=== PATIENT | female | born 1970 | race Caucasian/White ===

== ENCOUNTER → 2017-01-25 | Outpatient (CLI) | payer OTHER ==
[~2017-01-25] MED LIST: E-Z-GAS II EFFERVESCENT PACKET (SODIUM BICARB./CITRIC ACID/SIMETHICONE) As Ordered ONE; E-Z-HD 98% w/w 340GM SUSP BTL As Ordered ONE; E-Z-PAQUE 96% w/w SUSP 176GM BTL As Ordered ONE
--- NOTE | 2017-01-25 16:21 | REP ---
UPPER GI: The procedure was performed by BRIAN Miller under the direct supervision of Dr. Hansen. All imaging was reviewed with Dr Hansen prior to dictation. The patient was able to ingest liquid barium and air in a quantity sufficient to produce a double contrast examination. The oral and pharyngeal stages or deglutition appear unremarkable. Esophageal transport was prompt and efficient. There was no evidence of esophagitis, stricture, mucosa ring, or hiatal hernia. Gastroesophageal reflux was not observed on this exam. The stomach walsh were normally outlined. The rugal folds were smooth and regular. There was no gastritis, neoplasm or ulcerative disease. The duodenal walsh are normally outlined. There is no evidence of duodenitis, pancreatitis, peptic ulcer disease or neoplasm. The visualized portion of the proximal small bowel was normal in course and caliber. IMPRESSION: Unremarkable double contrast upper GI examination. Fluoroscopy time of 3 minutes and 44 seconds. Reviewed by BRIAN Snell 01/25/2017 04:30 PEdited and Signed by Kd Hansen MD 01/25/2017 05:04 P
== END ==
LOC: M RAD 09:52
PROVIDERS: ATTEND Nurse Practitioner Family
DX: R13.14 Dysphagia, pharyngoesophageal phase (principal)

== ENCOUNTER → 2017-07-10 | Outpatient (REF) | payer OTHER ==
[2017-07-10 12:20] LABS: HEMATOCRIT 44.2 % (36.0-47.0); HEMOGLOBIN 14.4 g/dl (12.0-16.0); MEAN CORPUSCULAR HEMOGLOBIN 30.7 pg (27.0-33.0); MEAN CORPUSCULAR HGB CONC 32.6 g/dl (32.0-36.5); MEAN CORPUSCULAR VOLUME 94.2 fl (80.0-96.0); PLATELET COUNT, AUTOMATED 368 10^3/uL (150-450); RED BLOOD COUNT 4.69 10^6/uL (4.00-5.40); WHITE BLOOD COUNT 10.8 10^3/uL (4.0-10.0)
[2017-07-10 13:04] LABS: ALBUMIN 3.3 GM/DL (3.2-5.2); ALBUMIN/GLOBULIN RATIO 0.94 (1.00-1.93); ALKALINE PHOSPHATASE 70 U/L (45-117); ALT/SGPT 18 U/L (12-78); ANION GAP 7 MEQ/L (8-16); AST/SGOT 14 U/L (7-37); BILIRUBIN,TOTAL 0.3 MG/DL (0.2-1.0); BLOOD UREA NITROGEN 9 MG/DL (7-18); CARBON DIOXIDE LEVEL 28 MEQ/L (21-32); CHLORIDE LEVEL 107 MEQ/L (98-107); CHOLESTEROL LEVEL 174 MG/DL (<200); CHOLESTEROL RISK RATIO 4.833 (<5); CREATININE FOR GFR 0.74 MG/DL (0.55-1.30); GLOMERULAR FILTRATION RATE > 60.0 (>58); GLUCOSE, FASTING 86 MG/DL (70-100); HDL CHOLESTEROL 36 MG/DL (>40); NON-HDL-C 138 MG/DL; POTASSIUM SERUM 4.6 MEQ/L (3.5-5.1); SODIUM LEVEL 142 MEQ/L (136-145); THYROID STIMULATING HORMONE 0.953 uIU/ML (0.358-3.740); TOTAL PROTEIN 6.8 GM/DL (6.4-8.2); TRIGLYCERIDES LEVEL 155 MG/DL (<150)
== END ==
LOC: M SFHCPLAZ 09:01
DX: Z00.00 Encounter for general adult medical examination without abnormal findings (principal)
CPT/HCPCS: 84443

== ENCOUNTER → 2017-07-13 | Outpatient (CLI) | payer OTHER ==
[~2017-07-13] MED LIST changes: -E-Z-GAS II EFFERVESCENT PACKET (SODIUM BICARB./CITRIC ACID/SIMETHICONE) As Ordered ONE; -E-Z-HD 98% w/w 340GM SUSP BTL As Ordered ONE; -E-Z-PAQUE 96% w/w SUSP 176GM BTL As Ordered ONE; +ISOVUE-370 76% 100ML VIAL (Q9967) As Ordered
== END ==
LOC: M RAD 16:19
DX: R13.14 Dysphagia, pharyngoesophageal phase (principal)
CPT/HCPCS: Q9967

== ENCOUNTER → 2018-06-15 | Outpatient (CLI) | payer OTHER ==
--- NOTE | 2018-06-15 16:57 | REPMRS ---
Patient History The patient states she has not had a clinical breast exam in over a year. Family history of prostate cancer at age 50 or over in father, breast cancer at age 57 in maternal aunt. No Hormone Replacement Therapy Digital Woman Screen Mammo: June 15, 2018 - Exam #: [id number] Bilateral CC and MLO view(s) were taken. Technologist: Steffi Torres, Technologist Prior study comparison: July 17, 2013, digital woman screen mammo performed at [facility]. FINDINGS: There are scattered fibroglandular densities. There has been no change in the appearance of the mammogram from the prior studies. There is a mild amount of scattered fibroglandular density which is fairly symmetric. There is no interval development of dominant mass, architectural distortion, or clustered microcalcification suggestive of malignancy. 3-D tomosynthesis shows no additional findings. Assessment: BI-RADS/ACR category 1 mammogram. Negative. Recommendation Routine screening mammogram of both breasts in 1 year (for women over age 40). This patient's Lifetime Breast Cancer RIsk is estimated at 10.9 %. This mammogram was interpreted with the aid of an FDA-approved computer-aided dectection system. Electronically Signed By: Adam Joshi MD 06/15/18 [id number]
== END ==
LOC: M WHC 14:31
PROVIDERS: ATTEND Nurse Practitioner Adult Health
DX: Z12.31 Encounter for screening mammogram for malignant neoplasm of breast (principal)

== ENCOUNTER → 2020-06-02 | Outpatient (CLI) | payer OTHER ==
--- NOTE | 2020-06-02 08:40 | REPPI ---
INDICATION: RIGHT HIP PAIN COMPARISON: None. TECHNIQUE: AP and frog-lateral views of the right hip FINDINGS: Generalized age-related changes include subtle increased sclerosis to the acetabulum and enthesopathy along the greater trochanter. No further overt osteoarthritic or significant degenerative changes are appreciated. No evidence for acute or healed injury. Surrounding soft tissues are normal. IMPRESSION: Mild generalized age-related degenerative changes. <Electronically signed by David Adam > 06/02/20 0806
== END ==
LOC: M PLAIMG 08:21
PROVIDERS: ATTEND Nurse Practitioner Adult Health
DX: M25.551 Pain in right hip (principal)

== ENCOUNTER → 2020-06-02 | Outpatient (REF) | payer OTHER ==
[2020-06-02 11:13] LABS: HEMATOCRIT 47.8 % (36.0-47.0); HEMOGLOBIN 14.8 g/dl (12.0-15.5); MEAN CORPUSCULAR HEMOGLOBIN 29.6 pg (27.0-33.0); MEAN CORPUSCULAR VOLUME 95.6 fl (80.0-96.0); PLATELET COUNT, AUTOMATED 455 10^3/uL (150-450); WHITE BLOOD COUNT 13.5 10^3/uL (4.0-10.0)
[2020-06-02 11:39] LABS: ALT/SGPT 26 U/L (12-78); BLOOD UREA NITROGEN 9 MG/DL (7-18); CALCIUM LEVEL 9.3 MG/DL (8.5-10.1); CARBON DIOXIDE LEVEL 30 MEQ/L (21-32); CHLORIDE LEVEL 106 MEQ/L (98-107); CREATININE FOR GFR 0.76 MG/DL (0.55-1.30); GLOMERULAR FILTRATION RATE > 60.0 (>58); GLUCOSE, FASTING 92 MG/DL (70-100); POTASSIUM SERUM 5.1 MEQ/L (3.5-5.1); SODIUM LEVEL 142 MEQ/L (136-145)
[2020-06-02 11:40] LABS: ALBUMIN 3.5 GM/DL (3.2-5.2); BILIRUBIN,TOTAL 0.2 MG/DL (0.2-1.0); TOTAL PROTEIN 7.2 GM/DL (6.4-8.2)
[2020-06-02 11:47] LABS: TOTAL 25(OH) VITAMIN D 18.1 NG/ML (30.0-100.0)
== END ==
LOC: M SFHCPLAZ 08:21
PROVIDERS: ATTEND Nurse Practitioner Adult Health
DX: E55.9 Vitamin D deficiency, unspecified (principal)

== ENCOUNTER → 2020-07-15 | Outpatient (CLI) | payer OTHER ==
[~2020-07-15] MED LIST changes: -ISOVUE-370 76% 100ML VIAL (Q9967) As Ordered; +ISOVUE-370 76% 100ML VIAL As Ordered ONE
--- NOTE | 2020-07-15 14:10 | REP ---
INDICATION: SARCOIDOSIS COMPARISON: 07/13/2017 TECHNIQUE: Axial contrast enhanced images from the thoracic inlet to the upper abdomen with coronal and sagittal reformations using 75 ml Isovue 370 intravenous contrast material. This CT examination was performed using the following dose reduction techniques: Automated exposure control, adjustment of mA and/or kv according to the patient's size, and use of iterative reconstruction technique. FINDINGS: Lung morton are well aerated, symmetric, and demonstrate scattered calcified and noncalcified nodules measuring up to roughly 6 mm and essentially unchanged compared to prior examination. No acute consolidation, new significant nodule or mass lesion. No pleural effusion. No pneumothorax. Partially calcified hilar and mediastinal lymph nodes again identified without significant adenopathy. Further evaluation of the mediastinum demonstrates normal/stable thoracic aorta, pulmonary vasculature, and heart/pericardium. Musculoskeletal structures are intact. Limited upper abdomen demonstrates diffuse hepatosteatosis and normal bilateral adrenal glands. IMPRESSION: Stable scattered calcified and noncalcified nodules along with partially calcified normal size mediastinal and hilar lymph nodes consistent with sarcoidosis and or granulomatous disease. No acute mediastinal or pleuroparenchymal process. Hepatosteatosis. <Electronically signed by David Adam > 07/15/20 [id number]
== END ==
LOC: M RAD 09:58
PROVIDERS: ATTEND Nurse Practitioner Adult Health
DX: D86.9 Sarcoidosis, unspecified (principal)
CPT/HCPCS: 71260; Q9967

== ENCOUNTER → 2020-08-06 | Outpatient (CLI) | payer OTHER ==
--- NOTE | 2020-08-06 13:10 | REPVR ---
PROCEDURE INFORMATION: Exam: MR Lumbar Spine Without Contrast Exam date and time: 08/06/2020 8:46 AM Age: 49 years old Clinical indication: Low back pain; Additional info: Lbp TECHNIQUE: Imaging protocol: Multiplanar magnetic resonance images of the lumbar spine without intravenous contrast. COMPARISON: MRI-Spine, L.S. without con 02/19/2016 5:53 PM FINDINGS: Vertebrae: Mild exaggeration of the lumbar lordosis. 4 mm of degenerative retrolisthesis of L5 on S1, 3 mm of degenerative retrolisthesis of L3 on L4. No acute fracture seen. Spinal cord: The conus medullaris ends normally. Disc desiccation throughout. Mild disc height loss at L1-L2. There is [id number] prevertebral spondylosis from L1-L2 through L3-L4. Small lower thoracic and upper lumbar endplate Schmorl's nodes. L1-L2: No significant interval change. Mild disc bulge and right facet arthropathy. No stenoses. L2-L3: Mild right eccentric disc bulge. Decreased conspicuity of broad-based right paracentral disc protrusion with high-intensity zone since prior. Facet arthropathy is mild. No stenoses. L3-L4: Mild progression of right eccentric disc osteophyte complex as well as mild to moderate facet arthropathy. High-intensity zone in right foraminal disc margin. The central spinal canal remains patent. Mild right neural foraminal stenosis. No significant left neural foraminal narrowing. L4-L5: Mildly progressive left eccentric disc osteophyte complex. New high-intensity zone in left lateral canal/foraminal disc margin. Moderate facet arthropathy with facet joint effusions again demonstrated. Mild left neural foraminal stenosis is similar to prior. There is a new 9 x 9 mm right foraminal cystic lesion, image 10 series 601, most likely a synovial cyst which impinges upon the exiting right L4 nerve root. L5-S1: No significant interval change. Moderate facet arthropathy. Left paracentral disc protrusion with high-intensity zone is again demonstrated. The central spinal canal remains patent. No evidence of S1 nerve root impingement. No significant foraminal stenoses. Soft tissues: Nonspecific edema in the back subcutaneous fat, potentially dependent/positional. Kidneys and ureters: The left kidney is atrophic. There is compensatory hypertrophy of the right kidney. IMPRESSION: 1. A new cystic lesion in the right L4-L5 foramen, most likely a synovial cyst which impinges upon the exiting right L4 nerve root. 2. Mild progression of degenerative disc disease at L3-L4 and L4-L5. Electronically signed by: Steffi Velázquez On 08/06/2020 13:11:20 PM
== END ==
LOC: M RAD 08:44
PROVIDERS: ATTEND Nurse Practitioner Adult Health
DX: M51.36 Other intervertebral disc degeneration, lumbar region (principal)

== ENCOUNTER → 2020-11-05 | Outpatient (CLI) | payer OTHER ==
--- NOTE | 2020-11-05 08:19 | REP ---
INDICATION: EPIGASTRIC PAIN COMPARISON: None. TECHNIQUE: Real time schwartz scale ultrasound examination using curved array transducer. FINDINGS: Liver is enlarged measuring 21 cm in craniocaudal length and demonstrates increased echotexture suggesting fatty infiltration with areas of focal fatty sparing. No focal hepatic lesion identified. Pancreas is incompletely evaluated due to interposed bowel gas but visualized portions appear normal. Gallbladder is normal and without gallstones, wall thickening, or pericholecystic fluid. No biliary ductal dilatation is appreciated and the common bile duct measures 5.1 mm diameter. The right kidney is normal in reniform shape without hydronephrosis and measures 13.2 x 6.0 x 5.1 cm. No ascites in the visualized right upper quadrant. IMPRESSION: Hepatomegaly and hepatosteatosis. <Electronically signed by David Adam > 11/05/20 [id number]
== END ==
LOC: M RAD 07:20
PROVIDERS: ATTEND Nurse Practitioner Adult Health
DX: R10.13 Epigastric pain (principal)

== ENCOUNTER → 2020-12-01 | Outpatient (REF) | payer OTHER ==
[2020-12-01 10:01] LABS: HEMATOCRIT 46.3 % (36.0-47.0); MEAN CORPUSCULAR HEMOGLOBIN 30.5 pg (27.0-33.0); MEAN CORPUSCULAR HGB CONC 32.4 g/dl (32.0-36.5); MEAN CORPUSCULAR VOLUME 94.1 fl (80.0-96.0); PLATELET COUNT, AUTOMATED 380 10^3/uL (150-450); RED BLOOD COUNT 4.92 10^6/uL (4.00-5.40); WHITE BLOOD COUNT 9.4 10^3/uL (4.0-10.0)
[2020-12-01 10:29] LABS: ALBUMIN 3.6 GM/DL (3.2-5.2); ALT/SGPT 38 U/L (12-78); BILIRUBIN,TOTAL 0.3 MG/DL (0.2-1.0); BLOOD UREA NITROGEN 15 MG/DL (7-18); CALCIUM LEVEL 9.5 MG/DL (8.5-10.1); CARBON DIOXIDE LEVEL 29 MEQ/L (21-32); CHLORIDE LEVEL 108 MEQ/L (98-107); CREATININE FOR GFR 0.71 MG/DL (0.55-1.30); GLOMERULAR FILTRATION RATE > 60.0 (>58); GLUCOSE, FASTING 84 MG/DL (70-100); MAGNESIUM LEVEL 1.9 MG/DL (1.8-2.4); POTASSIUM SERUM 4.9 MEQ/L (3.5-5.1); SODIUM LEVEL 141 MEQ/L (136-145)
== END ==
LOC: M SFHCPLAZ 08:52
PROVIDERS: ATTEND Nurse Practitioner Adult Health
DX: R00.2 Palpitations (principal)

== ENCOUNTER → 2020-12-05 | Outpatient (CLI) | payer OTHER ==
--- NOTE | 2020-12-07 18:58 | HOLTMON ---
[facility] Test Date: 2020-12-05 Pat Name: ITZEL MURRIETA Department: Room: - Gender: Female Information Technology Director: FERNIEELLIOT LOVEJALYN : 1970 Requested By: Steffany LAWS Order Number: [id number] Reading MD: Taran Mack Interpretive Statements monitored for 24 hours, underlying rhythm sinus with rates varying from 57-166, averaging 84 bpm. there was no significant bradyarrhythmia or AV block. No atrial ectopic activity. Average of 37 isolated PVCs per hour but no ventricular tachycardiac. the patient noted 1 diary entry "felt palpitations, nausea and dyspnea" rhythm at this time did not show any change from baseline; normal sinus rhythm rates 67 with isolated PVC. Findings well within normal limits. Electronically Signed on 12-07-2020 18:58:29 EDT by Taran Mack
== END ==
LOC: M EKG 08:18
PROVIDERS: ATTEND Nurse Practitioner Adult Health
DX: R00.2 Palpitations (principal)

== ENCOUNTER → 2021-06-24 | Outpatient (CLI) | payer OTHER ==
[2021-06-24 09:48] LABS: DRVV SCREEN 38.4 SEC
[2021-06-24 09:54] LABS: ALBUMIN 3.3 GM/DL (3.2-5.2); ALT/SGPT 22 U/L (12-78); BILIRUBIN,TOTAL 0.2 MG/DL (0.2-1.0); BLOOD UREA NITROGEN 11 MG/DL (7-18); C REACTIVE PROTEIN QUANTITATIV 0.88 MG/DL (0.00-0.30); CALCIUM LEVEL 9.4 MG/DL (8.5-10.1); CARBON DIOXIDE LEVEL 30 MEQ/L (21-32); CHLORIDE LEVEL 108 MEQ/L (98-107); CREATININE FOR GFR 0.73 MG/DL (0.55-1.30); GLOMERULAR FILTRATION RATE > 60.0 (>58); GLUCOSE, FASTING 96 MG/DL (70-100); POTASSIUM SERUM 4.4 MEQ/L (3.5-5.1); RHEUMATOID FACTOR QUANT < 10.0 IU/ML (<15.0); SODIUM LEVEL 141 MEQ/L (136-145)
== END ==
LOC: M LAB 08:38
PROVIDERS: ATTEND Nurse Practitioner Adult Health
DX: J45.909 Unspecified asthma, uncomplicated (principal)

== ENCOUNTER 2021-09-02 14:36 | Emergency (ER) | payer OTHER ==
[~2021-09-02] VITALS: Ht 162.6 cm; Wt 98.5 kg
[2021-09-02] MEDS ORDERED: NS 1,000 ML IV ONE (16:00)
[2021-09-02] MEDS ORDERED: ONDANSETRON 4MG/2ML VIAL IV ONE (16:00)
[2021-09-02] MEDS ORDERED: KETOROLAC 30 MG/ML 1ML VIAL IV ONE (16:00)
[2021-09-02 16:36] LABS: BASO % 0.3 % (0.0-1.0); EOS # 0.3 10^3/uL (0.0-0.5); EOS % 1.9 % (0.0-3.0); HEMOGLOBIN 14.2 g/dl (12.0-15.5); LYMPH # 3.6 10^3/uL (1.5-5.0); LYMPH % 26.3 % (24.0-44.0); MEAN CORPUSCULAR HEMOGLOBIN 30.1 pg (27.0-33.0); MEAN CORPUSCULAR VOLUME 91.3 fl (80.0-96.0); MONO # 0.9 10^3/uL (0.0-0.8); MONO % 6.8 % (2.0-8.0); NEUTROPHILS # 8.9 10^3/uL (1.5-8.5); NEUTROPHILS % 64.2 % (36.0-66.0); PLATELET COUNT, AUTOMATED 398 10^3/uL (150-450); RED BLOOD COUNT 4.71 10^6/uL (4.00-5.40); WHITE BLOOD COUNT 13.8 10^3/uL (4.0-10.0)
[2021-09-02] MEDS ORDERED: TRAM50TA2 PO (16:43)
[2021-09-02 17:04] LABS: ALBUMIN 3.4 GM/DL (3.2-5.2); ALT/SGPT 38 U/L (12-78); BILIRUBIN,DIRECT < 0.1 MG/DL (0.0-0.2); BILIRUBIN,TOTAL 0.2 MG/DL (0.2-1.0); LIPASE 206 U/L (73-393); TOTAL PROTEIN 6.7 GM/DL (6.4-8.2)
[2021-09-02 17:06] VITALS: BP 121/66
[2021-09-02] MEDS ORDERED: CIPR-249 PO (17:28)
[2021-09-02] MEDS ORDERED: FLOM0.4C39 PO (17:28)
== END 2021-09-02 17:43 | disposition home or self-care (01) ==
LOC: M ED 14:36
DX: N13.2 Hydronephrosis with renal and ureteral calculous obstruction (principal); K52.9 Noninfective gastroenteritis and colitis, unspecified; N39.0 Urinary tract infection, site not specified; R59.9 Enlarged lymph nodes, unspecified; R00.2 Palpitations; J45.909 Unspecified asthma, uncomplicated; D86.9 Sarcoidosis, unspecified; F17.200 Nicotine dependence, unspecified, uncomplicated
CPT/HCPCS: 74176; 80047; 80076; 81001; 82550; 83605; 83690; 85025; 87086; 93005; 96361; 96374; 96375; 99284; J1885; J2405

== ENCOUNTER → 2021-09-15 | Outpatient (REF) | payer OTHER ==
[~2021-09-15] MED LIST changes: +CIPR-249 PO; +FLOM0.4C39 PO; -ISOVUE-370 76% 100ML VIAL As Ordered ONE; +TRAM50TA2 PO
[2021-09-15 17:47] LABS: APPEARANCE, URINE HAZY (CLEAR); BACTERIA, URINE AUTO NEGATIVE (NEGATIVE); BILIRUBIN, URINE AUTO NEGATIVE (NEGATIVE); BLOOD, URINE BLOOD 2+ (NEGATIVE); COLOR, URINE YELLOW (YELLOW); GLUCOSE, URINE (UA) AUTO NEGATIVE (NEGATIVE); KETONE, URINE AUTO TRACE mg/dL (NEGATIVE); LEUKOCYTE ESTERASE, URINE AUTO NEGATIVE (NEGATIVE); NITRITE, URINE AUTO NEGATIVE (NEGATIVE); PROTEIN, URINE AUTO NEGATIVE (NEGATIVE); RBC, URINE AUTO 80 /HPF (0-3); SQUAMOUS EPITHELIAL CELL UR AU 2 /HPF (0-6); WBC, URINE AUTO 2 /HPF (0-3)
== END ==
LOC: M SMT 17:18
PROVIDERS: ATTEND Nurse Practitioner Women's Health
DX: N13.2 Hydronephrosis with renal and ureteral calculous obstruction (principal)

== ENCOUNTER → 2021-09-16 | Outpatient (CLI) | payer OTHER | LOC: M RAD 07:39 | PROVIDERS: ATTEND Nurse Practitioner Women's Health | DX: N13.2 Hydronephrosis with renal and ureteral calculous obstruction (principal) ==

== ENCOUNTER → 2022-08-01 | Outpatient (CLI) | payer OTHER ==
[~2022-08-01] MED LIST changes: +BUDE3CAP PO; +BUSP10TA; +BUSP10TA PO; +FISH1000 PO; +OMEP40CA5; +RA T500C2 PO; +VITMTA PO; +collagen
[2022-08-01 08:47] LABS: FREE T4 0.99 NG/DL (0.89-1.76); IMMUNOGLOBULIN A 172.2 MG/DL (40-350)
[2022-08-01 08:48] LABS: THYROID STIMULATING HORMONE 1.717 uIU/ML (0.55-4.78)
== END ==
LOC: M LAB 07:55
PROVIDERS: ATTEND Internal Medicine Gastroenterology
DX: R19.7 Diarrhea, unspecified (principal)

== ENCOUNTER → 2022-08-03 | Outpatient (REF) | payer OTHER | LOC: M LAB REF 09:26 | PROVIDERS: ATTEND Internal Medicine Gastroenterology | DX: R19.7 Diarrhea, unspecified (principal) ==

== ENCOUNTER → 2022-08-12 | Outpatient (CLI) | payer OTHER ==
[~2022-08-12] MED LIST changes: +E-Z-GAS II EFFERVESCENT PACKET (SODIUM BICARB./CITRIC ACID/SIMETHICONE) As Ordered ONE; +E-Z-HD 98% w/w 340GM SUSP BTL As Ordered ONE; +E-Z-PAQUE 96% w/w SUSP 176GM BTL As Ordered ONE
== END ==
LOC: M RAD 08:01
PROVIDERS: ATTEND Internal Medicine Gastroenterology
DX: R93.9 Diagnostic imaging inconclusive due to excess body fat of patient (principal); R13.10 Dysphagia, unspecified

== ENCOUNTER 2023-03-14 15:17 | Inpatient (IN) | payer OTHER ==
[~2023-03-14] VITALS: Ht 157.5 cm; Wt 90.5 kg
[~2023-03-14 15:17] MED LIST changes: -E-Z-GAS II EFFERVESCENT PACKET (SODIUM BICARB./CITRIC ACID/SIMETHICONE) As Ordered ONE; -E-Z-HD 98% w/w 340GM SUSP BTL As Ordered ONE; -E-Z-PAQUE 96% w/w SUSP 176GM BTL As Ordered ONE
[2023-03-14] MEDS ORDERED: ONDANSETRON 4MG 2ML VIAL As Ordered ONE (15:31)
[2023-03-14] MEDS ORDERED: MORPHINE 4 MG/ML 1ML VIAL IV PRN ×3 (16:10→20:00)
[2023-03-14] MEDS ORDERED: METOCLOPRAMIDE INJ 10MG/2ML VIAL IV ONE (16:10)
[2023-03-14] MEDS: NS 1,000 ML IV SCH ×2 (16:28→21:02)
[2023-03-14 16:31] LABS: BASO # 0.1 10^3/uL (0.0-0.2); BASO % 0.3 % (0.0-1.0); EOS # 0.1 10^3/uL (0.0-0.5); EOS % 0.6 % (0.0-3.0); HEMATOCRIT 51.5 % (36.0-47.0); HEMOGLOBIN 17.3 g/dl (12.0-15.5); LYMPH # 1.8 10^3/uL (1.5-5.0); LYMPH % 8.9 % (24.0-44.0); MEAN CORPUSCULAR HEMOGLOBIN 30.1 pg (27.0-33.0); MEAN CORPUSCULAR HGB CONC 33.6 g/dl (32.0-36.5); MEAN CORPUSCULAR VOLUME 89.7 fl (80.0-96.0); MONO # 0.7 10^3/uL (0.0-0.8); MONO % 3.6 % (2.0-8.0); NEUTROPHILS # 17.4 10^3/uL (1.5-8.5); PLATELET COUNT, AUTOMATED 463 10^3/uL (150-450); RED BLOOD COUNT 5.74 10^6/uL (4.00-5.40); WHITE BLOOD COUNT 20.3 10^3/uL (4.0-10.0)
[2023-03-14 16:58] LABS: LIPASE 45 U/L (12-53)
[2023-03-14 17:00] LABS: ALBUMIN 3.8 G/DL (3.2-5.2); ALKALINE PHOSPHATASE 103 U/L (46-116); ALT/SGPT 21 U/L (7.0-40); AST/SGOT 16 U/L (<34); BILIRUBIN,DIRECT 0.2 MG/DL (<0.4); BILIRUBIN,TOTAL 0.5 MG/DL (0.3-1.2); BLOOD UREA NITROGEN 9 MG/DL (9-23); CALCIUM LEVEL 10.5 MG/DL (8.5-10.1); CARBON DIOXIDE LEVEL 26 MMOL/L (20-31); CHLORIDE LEVEL 105 MMOL/L (98-107); CREATININE FOR GFR 0.78 MG/DL (0.55-1.30); GLOMERULAR FILTRATION RATE > 60.0 (>51); GLUCOSE, FASTING 140 MG/DL (60-100); POTASSIUM SERUM 4.1 MMOL/L (3.5-5.1); SODIUM LEVEL 138 MMOL/L (136-145); TOTAL PROTEIN 7.4 G/DL (5.7-8.2)
[2023-03-14] MEDS ORDERED: ISOVUE-370 76% 100ML VIAL As Ordered ONE (17:31)
[2023-03-14] MEDS ORDERED: METOCLOPRAMIDE INJ 10MG/2ML VIAL IV PRN (20:00)
[2023-03-14] MEDS ORDERED: MORPHINE 2 MG/ML 1ML VIAL IV PRN (20:00)
[2023-03-14] MEDS ORDERED: NICOTINE 14 MG/24 HR TRANSDERMAL TD ONE (20:05)
[2023-03-14] MEDS: PANTOPRAZOLE 40MG VIAL IV SCH (22:57)
[2023-03-14] MEDS ORDERED: HOME MED LIST COMPLETE! XX SCH (23:35)
[2023-03-14 23:56] VITALS: BP 126/61; TEMP 99.7; O2SAT 94
[2023-03-15] MEDS ORDERED: NS 1,000 ML IV SCH (02:25)
[2023-03-15] MEDS: PIPERACILLIN/TAZOBACTAM SOD 3.375 GM in D5W MINI-BAG PLUS 50 ML IV SCH ×2 (03:21→08:23)
[2023-03-15 06:35] LABS: BASO % 0.2 % (0.0-1.0); EOS # 0.1 10^3/uL (0.0-0.5); EOS % 0.5 % (0.0-3.0); LYMPH # 1.3 10^3/uL (1.5-5.0); LYMPH % 13.5 % (24.0-44.0); MEAN CORPUSCULAR HGB CONC 33.3 g/dl (32.0-36.5); MEAN CORPUSCULAR VOLUME 90.2 fl (80.0-96.0); MONO # 1.1 10^3/uL (0.0-0.8); MONO % 11.6 % (2.0-8.0); NEUTROPHILS # 7.1 10^3/uL (1.5-8.5); PLATELET COUNT, AUTOMATED 387 10^3/uL (150-450); WHITE BLOOD COUNT 9.6 10^3/uL (4.0-10.0)
[2023-03-15 06:41] LABS: HEMOGLOBIN 15.3 g/dl (12.0-15.5)
[2023-03-15 07:07] LABS: BLOOD UREA NITROGEN 20 MG/DL (9-23); CALCIUM LEVEL 8.1 MG/DL (8.5-10.1); CARBON DIOXIDE LEVEL 25 MMOL/L (20-31); CHLORIDE LEVEL 110 MMOL/L (98-107); CREATININE FOR GFR 0.84 MG/DL (0.55-1.30); GLOMERULAR FILTRATION RATE > 60.0 (>51); POTASSIUM SERUM 4.2 MMOL/L (3.5-5.1); SODIUM LEVEL 141 MMOL/L (136-145)
[2023-03-15 07:15] LABS: GLUCOSE, FASTING 124 MG/DL (60-100)
[2023-03-15] MEDS: ENOXAPARIN 40MG/0.4ML SYRINGE (J1650 PER 10MG) SC SCH ×2 (08:23→08:29)
[2023-03-15] MEDS: PANTOPRAZOLE 40MG VIAL IV SCH (08:24)
[2023-03-15] MEDS ORDERED: methylPREDNISolone 125MG 2ML VIAL IV ONE (08:30)
[2023-03-15 09:16] LABS: ERYTHROCYTE SEDIMENTATION RATE 24 mm/hr (0-30)
[2023-03-15] MEDS ORDERED: BUDE3CAP PO (10:44)
[2023-03-15] MEDS ORDERED: AMOX875T2 PO (10:44)
== END 2023-03-15 11:07 | disposition home or self-care (01) | DRG 245 ==
LOC: M ED 15:17 → M ED INP 20:34 → ENRESERV 23:30 → M MS4PR 23:48
PROVIDERS: ADMIT Family Medicine; ATTEND Student in an Organized Health Care Education/Training Program
DX: K50.018 Crohn's disease of small intestine with other complication (principal); K56.7 Ileus, unspecified; J45.909 Unspecified asthma, uncomplicated; K21.9 Gastro-esophageal reflux disease without esophagitis; F17.210 Nicotine dependence, cigarettes, uncomplicated; E78.5 Hyperlipidemia, unspecified; Z89.022 Acquired absence of left finger(s); D72.829 Elevated white blood cell count, unspecified; R00.0 Tachycardia, unspecified; E86.0 Dehydration; R91.8 Other nonspecific abnormal finding of lung field; N26.1 Atrophy of kidney (terminal); Z79.899 Other long term (current) drug therapy

== ENCOUNTER → 2023-03-30 | Outpatient (REF) | payer OTHER ==
[~2023-03-30] MED LIST changes: +AMOX875T2 PO
[2023-03-30 17:53] LABS: APPEARANCE, URINE CLEAR (CLEAR); BACTERIA, URINE AUTO NEGATIVE (NEGATIVE); BILIRUBIN, URINE AUTO NEGATIVE (NEGATIVE); BLOOD, URINE BLOOD 1+ (NEGATIVE); COLOR, URINE YELLOW (YELLOW); GLUCOSE, URINE (UA) AUTO NEGATIVE (NEGATIVE); KETONE, URINE AUTO NEGATIVE (NEGATIVE); LEUKOCYTE ESTERASE, URINE AUTO NEGATIVE (NEGATIVE); NITRITE, URINE AUTO NEGATIVE (NEGATIVE); PROTEIN, URINE AUTO NEGATIVE (NEGATIVE); RBC, URINE AUTO 8 /HPF (0-3); SPECIFIC GRAVITY URINE AUTO 1.009 (1.002-1.035); SQUAMOUS EPITHELIAL CELL UR AU 0 /HPF (0-6); UROBILINOGEN, URINE AUTO 0.2 mg/dL (0.0-2.0); WBC, URINE AUTO 0 /HPF (0-3)
== END ==
LOC: M SFHCLERA 17:10
PROVIDERS: ATTEND Physician Assistant
DX: R30.0 Dysuria (principal)

== ENCOUNTER → 2023-05-07 | Outpatient (CLI) | payer OTHER ==
[~2023-05-07] MED LIST changes: +MAGN400T33 PO; +TRAM50TA2
[2023-05-07 10:17] LABS: APPEARANCE, URINE HAZY (CLEAR); BACTERIA, URINE AUTO NEGATIVE (NEGATIVE); BILIRUBIN, URINE AUTO NEGATIVE (NEGATIVE); BLOOD, URINE BLOOD 3+ (NEGATIVE); COLOR, URINE YELLOW (YELLOW); GLUCOSE, URINE (UA) AUTO NEGATIVE (NEGATIVE); KETONE, URINE AUTO NEGATIVE (NEGATIVE); LEUKOCYTE ESTERASE, URINE AUTO NEGATIVE (NEGATIVE); NITRITE, URINE AUTO NEGATIVE (NEGATIVE); PROTEIN, URINE AUTO 1+ mg/dL (NEGATIVE); RBC, URINE AUTO 112 /HPF (0-3); SPECIFIC GRAVITY URINE AUTO 1.011 (1.002-1.035); SQUAMOUS EPITHELIAL CELL UR AU 1 /HPF (0-6); UROBILINOGEN, URINE AUTO 0.2 mg/dL (0.0-2.0); WBC, URINE AUTO 1 /HPF (0-3)
== END ==
LOC: M LAB 09:31
PROVIDERS: ATTEND Physician Assistant
DX: R31.29 Other microscopic hematuria (principal)

== ENCOUNTER → 2023-05-07 | Outpatient (CLI) | payer OTHER ==
[2023-05-07 10:14] LABS: HEMATOCRIT 45.1 % (36.0-47.0); HEMOGLOBIN 14.9 g/dl (12.0-15.5); MEAN CORPUSCULAR HEMOGLOBIN 30.8 pg (27.0-33.0); MEAN CORPUSCULAR VOLUME 93.2 fl (80.0-96.0); PLATELET COUNT, AUTOMATED 394 10^3/uL (150-450); RED BLOOD COUNT 4.84 10^6/uL (4.00-5.40); WHITE BLOOD COUNT 9.3 10^3/uL (4.0-10.0)
[2023-05-07 10:47] LABS: ALBUMIN 3.2 G/DL (3.2-5.2); ALKALINE PHOSPHATASE 79 U/L (46-116); ALT/SGPT 16 U/L (7.0-40); AST/SGOT 11 U/L (<34); BILIRUBIN,TOTAL 0.3 MG/DL (0.3-1.2); BLOOD UREA NITROGEN 7 MG/DL (9-23); CALCIUM LEVEL 9.6 MG/DL (8.5-10.1); CARBON DIOXIDE LEVEL 30 MMOL/L (20-31); CHLORIDE LEVEL 106 MMOL/L (98-107); CHOLESTEROL LEVEL 207 MG/DL (<200); CHOLESTEROL RISK RATIO 4.76 (<5); CREATININE FOR GFR 0.69 MG/DL (0.55-1.30); FERRITIN 49.8 NG/ML (7.3-270.7); GLOMERULAR FILTRATION RATE > 60.0 (>51); GLUCOSE, FASTING 84 MG/DL (60-100); HDL CHOLESTEROL 43.4 MG/DL (>40); MAGNESIUM LEVEL 1.6 MG/DL (1.8-2.4); NON-HDL-C 163.6 MG/DL; POTASSIUM SERUM 4.7 MMOL/L (3.5-5.1); SODIUM LEVEL 141 MMOL/L (136-145); THYROID STIMULATING HORMONE 0.949 uIU/ML (0.55-4.78); TOTAL PROTEIN 6.4 G/DL (5.7-8.2); TRIGLYCERIDES LEVEL 163 MG/DL (<150); VITAMIN B12 LEVEL 561 PG/ML (211-911)
== END ==
LOC: M LAB 09:27
PROVIDERS: ATTEND Nurse Practitioner Adult Health
DX: Z00.00 Encounter for general adult medical examination without abnormal findings (principal); J45.909 Unspecified asthma, uncomplicated; Z13.1 Encounter for screening for diabetes mellitus; R00.2 Palpitations; Z13.29 Encounter for screening for other suspected endocrine disorder; E55.9 Vitamin D deficiency, unspecified

== ENCOUNTER → 2023-10-19 | Outpatient (REF) | payer MEDICAID, OTHER ==
[~2023-10-19] MED LIST changes: -TRAM50TA2
== END ==
LOC: M SFHCPLAZ 17:13
PROVIDERS: ATTEND Nurse Practitioner Adult Health
DX: R35.0 Frequency of micturition (principal)

== ENCOUNTER → 2023-11-03 | Outpatient (CLI) | payer MEDICAID | LOC: M RAD 07:06 | PROVIDERS: ATTEND Nurse Practitioner Adult Health | DX: D86.0 Sarcoidosis of lung (principal); F17.210 Nicotine dependence, cigarettes, uncomplicated ==

== ENCOUNTER 2024-05-18 09:17 | Emergency (ER) | payer MEDICAID, OTHER ==
[~2024-05-18] VITALS: Ht 165.1 cm; Wt 97.9 kg
[2024-05-18] MEDS: KETOROLAC 60MG 2ML VIAL IM ONE (10:15)
[2024-05-18] MEDS: ACETAMINOPHEN 325 MG TAB PO ONE (10:15)
[2024-05-18 11:33] VITALS: BP 121/62; TEMP 98.3; O2SAT 97
[2024-05-18] MEDS ORDERED: MEDR4PAK PO (11:43)
[2024-05-18] MEDS ORDERED: LIDO5DIS41 TOP (11:43)
== END 2024-05-18 11:57 | disposition home or self-care (01) ==
LOC: M ED 09:17
DX: S40.011A Contusion of right shoulder, initial encounter (principal); M19.011 Primary osteoarthritis, right shoulder; Y92.019 Unspecified place in single-family (private) house as the place of occurrence of the external cause; Y93.9 Activity, unspecified; Y99.9 Unspecified external cause status; F17.210 Nicotine dependence, cigarettes, uncomplicated; Z79.899 Other long term (current) drug therapy
CPT/HCPCS: 73030; 96372; 99283; J1885

== ENCOUNTER → 2024-09-30 | Outpatient (REF) | payer OTHER, MEDICAID ==
[~2024-09-30] MED LIST changes: +LIDO5DIS41 TOP; +MEDR4PAK PO
== END ==
LOC: M SFHCPLAZ 12:22
PROVIDERS: ATTEND Nurse Practitioner Adult Health
DX: R35.0 Frequency of micturition (principal)

== ENCOUNTER 2024-10-06 20:35 | Emergency (ER) | payer OTHER, SELFPAY ==
[~2024-10-06] VITALS: Ht 162.6 cm; Wt 98.7 kg
[~2024-10-06 20:35] MED LIST changes: -CYCL-707 PO; -IBUP80TA PO
[2024-10-06 20:38] VITALS: BP 157/74; TEMP 97.2; O2SAT 100
[2024-10-07] MEDS ORDERED: CYCL-707 PO (00:56)
[2024-10-07] MEDS ORDERED: IBUP80TA PO (00:56)
== END 2024-10-07 01:34 | disposition home or self-care (01) ==
LOC: M ED 20:35
DX: S46.912A Strain of unspecified muscle, fascia and tendon at shoulder and upper arm level, left arm, initial encounter (principal); S33.5XXA Sprain of ligaments of lumbar spine, initial encounter; Y92.410 Unspecified street and highway as the place of occurrence of the external cause; Y93.9 Activity, unspecified; Y99.9 Unspecified external cause status; V49.40XA Driver injured in collision with unspecified motor vehicles in traffic accident, initial encounter; F17.210 Nicotine dependence, cigarettes, uncomplicated; Z79.1 Long term (current) use of non-steroidal anti-inflammatories (NSAID); Z79.899 Other long term (current) drug therapy

== ENCOUNTER → 2024-10-06 | Outpatient (CLI) | payer OTHER, SELFPAY ==
[~2024-10-06] MED LIST changes: +CYCL-707 PO; -FLOM0.4C39 PO; +IBUP80TA PO; +TAMS-18 PO
[2024-10-06 14:17] LABS: HEMATOCRIT 44.1 % (36.0-47.0); HEMOGLOBIN 14.6 g/dl (12.0-15.5); MEAN CORPUSCULAR HEMOGLOBIN 30.8 pg (27.0-33.0); MEAN CORPUSCULAR HGB CONC 33.1 g/dl (32.0-36.5); PLATELET COUNT, AUTOMATED 353 10^3/uL (150-450); RED BLOOD COUNT 4.74 10^6/uL (4.00-5.40); WHITE BLOOD COUNT 8.5 10^3/uL (4.0-10.0)
[2024-10-06 14:31] LABS: HEMOGLOBIN A1c 5.2 % (4.0-6.0)
[2024-10-06 14:41] LABS: ALBUMIN 3.5 G/DL (3.2-5.2); ALKALINE PHOSPHATASE 76 U/L (35-104); ALT/SGPT 55 U/L (7.0-40); AST/SGOT 26 U/L (<34); BILIRUBIN,TOTAL 0.3 MG/DL (0.3-1.2); BLOOD UREA NITROGEN 8 MG/DL (9-23); CALCIUM LEVEL 9.1 MG/DL (8.5-10.1); CARBON DIOXIDE LEVEL 29 MMOL/L (20-31); CHLORIDE LEVEL 109 MMOL/L (98-107); CREATININE FOR GFR 0.67 MG/DL (0.55-1.30); GLOMERULAR FILTRATION RATE > 90.0 (>51); GLUCOSE, FASTING 86 MG/DL (60-100); POTASSIUM SERUM 4.4 MMOL/L (3.5-5.1); SODIUM LEVEL 143 MMOL/L (136-145); TOTAL PROTEIN 6.6 G/DL (5.7-8.2)
[2024-10-06 14:43] LABS: FREE T4 1.22 NG/DL (0.89-1.76); THYROID STIMULATING HORMONE 1.068 uIU/ML (0.55-4.78)
== END ==
LOC: M LAB 13:48
PROVIDERS: ATTEND Nurse Practitioner Adult Health
DX: R35.0 Frequency of micturition (principal)